=== PATIENT | male | born 1955 | race African-American/Black ===

== ENCOUNTER 2016-11-22 01:20 | Emergency (ER) | payer OTHER ==
--- NOTE | 2016-11-22 01:45 | PDOC ---
History of Present Illness - General History Source: Patient Exam Limitations: No Limitations - History of Present Illness Initial Comments: 11/22/16 02:08 The patient is a 61-year-old male, with a significant past medical history of HTN, chronic Hepatitis C, who presents to the ED s/p injuring his right wrist. The pt states that he was riding on a hoverboard and fell on his right arm. As he was getting up, the pt heard his wrist crack. He reported to the ED to rule out fracture in the wrist. Pt was driven to the ED by his kids. The patient denies having any other injuries or symptoms. <BlakeGarima - Last Filed: 11/22/16 02:08> - General History Source: Patient <Ramesh Navarroui - Last Filed: 11/22/16 03:44> - General Stated Complaint: INJURY/RT WRIST Past History <BlakeGarima - Last Filed: 11/22/16 02:08> - Immunization History Immunization Up to Date: Yes - Suicide/Smoking/Psychosocial Hx Smoking History: Never smoked Have you smoked in the past 12 months: No Hx Alcohol Use: No Substance Use Type: None <Jose Navarro - Last Filed: 11/22/16 03:44> - Past Medical History Allergies/Adverse Reactions: Allergies Allergy/AdvReac Type Severity Reaction Status Date / Time No Known Allergies Allergy Verified 11/22/16 01:58 Home Medications: Ambulatory Orders Ondansetron [Zofran *Odt*] 4 mg SL TID #30 od.tablet 12/15/13 Pantoprazole Sodium [Protonix] 40 mg PO ONCE #20 tablet.ec 12/15/13 Review of Systems - Review of Systems Able to Perform ROS?: Yes Comments:: 11/22/16 02:09 GENERAL/CONSTITUTIONAL: No fever or chills. No weakness. HEAD, EYES, EARS, NOSE AND THROAT: No change in vision. No ear pain or discharge. No sore throat. CARDIOVASCULAR: No chest pain or shortness of breath. RESPIRATORY: No cough, wheezing, or hemoptysis. GASTROINTESTINAL: No nausea, vomiting, diarrhea or constipation. GENITOURINARY: No dysuria, frequency, or change in urination. MUSCULOSKELETAL: (+)right wrist pain. No joint swelling or pain. No neck or back pain. SKIN: No rash NEUROLOGIC: No headache, vertigo, loss of consciousness, or change in strength/ sensation. ENDOCRINE: No increased thirst. No abnormal weight change. HEMATOLOGIC/LYMPHATIC: No anemia, easy bleeding, or history of blood clots. ALLERGIC/IMMUNOLOGIC: No hives or skin allergy. <Garima Lozano - Last Filed: 11/22/16 02:08> *Physical Exam - Vital Signs Last Vital Signs Temp Pulse Resp BP Pulse Ox 99.3 F 72 20 122/88 98 11/22/16 01:58 11/22/16 01:58 11/22/16 01:58 11/22/16 01:58 11/22/16 01:58 - Physical Exam Comments: 11/22/16 02:10 GENERAL: Awake, alert, and fully oriented, in no acute distress HEAD: No signs of trauma EYES: PERRLA, EOMI, sclera anicteric, conjunctiva clear ENT: Auricles normal inspection, hearing grossly normal, nares patent, oropharynx clear without exudates. Moist mucosa NECK: Normal ROM, supple, no lymphadenopathy, JVD, or masses LUNGS: Breath sounds equal, clear to auscultation bilaterally. No wheezes, and no crackles HEART: Regular rate and rhythm, normal S1 and S2, no murmurs, rubs or gallops ABDOMEN: Soft, nontender, normoactive bowel sounds. No guarding, no rebound. No masses EXTREMITIES: Normal range of motion, no edema. No clubbing or cyanosis. No cords, erythema, or tenderness NEUROLOGICAL: Cranial nerves II through XII grossly intact. Normal speech, normal gait SKIN: Warm, Dry, normal turgor, no rashes or lesions noted <Garima Lozano - Last Filed: 11/22/16 02:08> ED Treatment Course - RADIOLOGY Radiograph Interpretation: 11/22/16 03:43 Xray right wrist transverse distal radius fx well aligned <Jose Navarro - Last Filed: 11/22/16 03:44> Progress Note - Progress Note Progress Note: Right wrist Web roll Sugar tong splint <Jose Navarro - Last Filed: 11/22/16 03:44> *DC/Admit/Observation/Transfer - Attestations Scribe Attestion: 11/22/16 02:10 Documentation prepared by Garima Lozano, acting as medical imaging technician for Miranda Hernadez MD. <BlakeJosé MiguelGarima - Last Filed: 11/22/16 02:08> - Discharge Dispostion Admit: No <Jose Navarro - Last Filed: 11/22/16 03:44> Diagnosis at time of Disposition: Right wrist fracture Qualifiers: Encounter type: initial encounter Fracture type: closed Qualified Code(s): S62.101A - Fracture of unspecified carpal bone, right wrist, initial encounter for closed fracture; S62.101A - Fracture of unspecified carpal bone, right wrist , initial encounter for closed fracture - Discharge Dispostion Disposition: HOME Condition at time of disposition: Stable - Referrals Referrals: Zev Caceres MD [Staff Physician] - - Patient Instructions Printed Discharge Instructions: DI for Wrist Fracture Additional Instructions: Ice; 20 mins on alternating with 20 mins off for 48 hours while awake. Rest Elevate Follow up with your orthopedic surgeon or the one listed on the discharge form. Return to the ER for severe/persistent/worsening symptoms, extremity numbness/ tingling sensation.
[2016-11-22 02:03] VITALS: BP 122/88; PULSE 72; TEMP 99.3; BMI 25.4
[2016-11-22] MEDS ORDERED: ACETAMINOPHEN 325 MG TABLET (FP) ONE (02:05)
--- NOTE | 2016-11-22 02:31 | PDOC ---
*Physical Exam - Vital Signs Last Vital Signs Temp Pulse Resp BP Pulse Ox 99.3 F 72 20 122/88 98 11/22/16 01:58 11/22/16 01:58 11/22/16 01:58 11/22/16 01:58 11/22/16 01:58 - Physical Exam General Appearance: Yes: Nourished Neck: positive: Trachea midline Respiratory/Chest: positive: Lungs Clear, Normal Breath Sounds Cardiovascular: positive: Regular Rhythm, Regular Rate, S1, S2 Musculoskeletal: positive: Other (right wrist deformity. 2 + radial / ulnar pulse intact. distally n/v intact. decr rom secondary to pain. ) Integumentary: positive: Normal Color, Dry, Warm Neurologic: positive: Fully Oriented, Alert, Normal Mood/Affect ED Treatment Course - Medications Given in the ED: ED Medications Discontinued Medications Generic Name Dose Route Start Last Admin Trade Name Freq PRN Reason Stop Dose Admin Oxycodone/Acetaminophen 1 combo 11/22/16 02:02 11/22/16 02:19 Percocet 5/325 - PO 11/22/16 02:03 1 combo ONCE ONE Administration Medical Decision Making - Medical Decision Making 11/22/16 02:30 right wrist deformity, plan xray r/o fx pain control.
== END 2016-11-22 03:56 | disposition home or self-care (01) ==
LOC: JER 01:20
DX: S62.101A Fracture of unspecified carpal bone, right wrist, initial encounter for closed fracture (principal); V98.8XXA Other specified transport accidents, initial encounter; Y93.89 Activity, other specified; Y92.9 Unspecified place or not applicable; I10 Essential (primary) hypertension; B18.2 Chronic viral hepatitis C
CPT/HCPCS: 73110-TC-RT; 99281-25